=== PATIENT | female | born 1950 | race Caucasian/White ===

== ENCOUNTER → 2018-05-30 10:59 | Outpatient (CLI) | payer MEDICARE, OTHER, SELFPAY ==
--- NOTE | 2018-05-30 | DI.MG.S_ITS ---
BILATERAL DIGITAL SCREENING MAMMOGRAM 3D/2D WITH CAD: 05/30/2018 CLINICAL: Routine screening. Comparison is made to exams dated: 04/27/2017 mammogram, 02/25/2016 mammogram, and 01/29/2015 mammogram - [facility]. There are scattered fibroglandular elements in both breasts. Current study was also evaluated with a Computer Aided Detection (CAD) system. No significant masses, calcifications, or other findings are seen in either breast. There has been no significant interval change. IMPRESSION: NEGATIVE There is no mammographic evidence of malignancy. A 1 year screening mammogram is recommended. This exam was interpreted at Station ID: [id number]. NOTE: For mammograms, a report in lay terms will be sent to the patient. Approximately 15% of breast malignancies will not be visualized mammographically. In the management of a palpable breast mass, a negative mammogram must not discourage biopsy of a clinically suspicious lesion. Electronically Signed By: Argelia galeano/ross:05/30/2018 12:07:35 letter sent: Normal Exam ACR BI-RADS Category 1: Negative 3341F
== END ==
PROVIDERS: PCP Family Medicine; Visit Provider Family Medicine
DX: Z12.31 Encounter for screening mammogram for malignant neoplasm of breast (principal)
CPT/HCPCS: 77063; 77067

== ENCOUNTER → 2019-11-27 10:48 | Outpatient (CLI) | payer MEDICARE, OTHER, SELFPAY ==
--- NOTE | 2019-11-27 | DI.MG.S_ITS ---
BILATERAL DIGITAL SCREENING MAMMOGRAM 3D/2D WITH CAD: 11/27/2019 CLINICAL: Routine screening. Comparison is made to exams dated: 05/30/2018 mammogram, 04/27/2017 mammogram, and 02/25/2016 mammogram - [facility]. There are scattered fibroglandular elements in both breasts. Current study was also evaluated with a Computer Aided Detection (CAD) system. No significant masses, calcifications, or other findings are seen in either breast. There has been no significant interval change. IMPRESSION: NEGATIVE There is no mammographic evidence of malignancy. A 1 year screening mammogram is recommended. This exam was interpreted at Station ID: [id number]. NOTE: For mammograms, a report in lay terms will be sent to the patient. Approximately 15% of breast malignancies will not be visualized mammographically. In the management of a palpable breast mass, a negative mammogram must not discourage biopsy of a clinically suspicious lesion. Electronically Signed By: Buck ibrahim/ross:11/27/2019 11:12:37 letter sent: Normal Exam ACR BI-RADS Category 1: Negative 3341F
== END ==
PROVIDERS: PCP Family Medicine; Referring Provider Family Medicine; Visit Provider Family Medicine
DX: Z12.31 Encounter for screening mammogram for malignant neoplasm of breast (principal)
CPT/HCPCS: 77063; 77067

== ENCOUNTER → 2021-05-11 10:51 | Outpatient (CLI) | payer MEDICARE, OTHER, SELFPAY ==
--- NOTE | 2021-05-11 | DI.MG.S_ITS ---
BILATERAL DIGITAL SCREENING MAMMOGRAM 3D/2D WITH CAD: 05/11/2021 CLINICAL: Routine screening. Comparison is made to exams dated: 11/27/2019 mammogram, 05/30/2018 mammogram, and 04/27/2017 mammogram - [facility]. There are scattered fibroglandular elements in both breasts. Current study was also evaluated with a Computer Aided Detection (CAD) system. No significant masses, calcifications, or other findings are seen in either breast. There has been no significant interval change. IMPRESSION: NEGATIVE There is no mammographic evidence of malignancy. A 1 year screening mammogram is recommended. This exam was interpreted at Station ID: [id number]. NOTE: For mammograms, a report in lay terms will be sent to the patient. Approximately 15% of breast malignancies will not be visualized mammographically. In the management of a palpable breast mass, a negative mammogram must not discourage biopsy of a clinically suspicious lesion. Electronically Signed By: Saleem alexandre/ross:05/11/2021 12:51:15 letter sent: Normal Exam ACR BI-RADS Category 1: Negative 3341F
--- NOTE | 2021-05-11 | DI.RAD.S_ITS ---
PROCEDURE: XR DEXA AXIAL SKELETON INDICATIONS: Age-related osteoporosis without current pathological fractu COMPARISON: None. FINDINGS: This blank DEXA report has been sent in error by the PACS system. The correct and complete report will be forthcoming in 1-2 days. Thank you for your patience and understanding. Dictated by: Lety Krishnamurthy MD, PhD on 05/11/2021 at 12:09 Approved by: Lety Krishnamurthy MD, PhD on 05/11/2021 at 12:09
== END ==
PROVIDERS: PCP Family Medicine; Referring Provider Family Medicine; Visit Provider Family Medicine
DX: Z12.31 Encounter for screening mammogram for malignant neoplasm of breast (principal); M85.852 Other specified disorders of bone density and structure, left thigh; Z78.0 Asymptomatic menopausal state
CPT/HCPCS: 77063; 77067; 77080

== ENCOUNTER 2021-11-20 10:44 | Emergency (ER) | payer MEDICARE, OTHER, SELFPAY ==
[2021-11-20] VITALS (15 sets, daily range): BP systolic 179–213; BP diastolic 72–93; PULSE 63–80; RESP 18; TEMP 36.7; O2SAT 97–100; BMI 29.1
[2021-11-20 12:53] LABS: Alanine Aminotransferase 44 IU/L (<35); Albumin 4.6 g/dL (3.5-5.0); Albumin Globulin Ratio 1.4 (1.0-2.8); Alkaline Phosphatase 63 U/L (38-126); Aspartate Aminotransferase 48 IU/L (14-36); BUN Creatinine Ratio 27.9 (6-22); Bilirubin Total 0.5 mg/dL (0.2-1.3); Blood Urea Nitrogen 24 mg/dL (7-17); Calcium 9.7 mg/dL (8.4-10.2); Carbon Dioxide 28 mmol/L (22-32); Chloride 100 mmol/L (98-107); Estimated Glomerular Filt Rate > 60 mL/min (>60); Globulin 3.3 g/dL (1.7-4.1); Glucose 114 mg/dL (80-110); HEMOLYSIS < 15 (0-50); Lipase 637 U/L (23-300); Potassium 3.5 mmol/L (3.4-5.1); Sodium 137 mmol/L (137-145); Total Protein 7.9 g/dL (6.3-8.2)
[2021-11-20 12:57] LABS: Amorphous Sediment Urine 1+; Bacteria Urine Few (2-10); RBC Urine 1-5/HPF (0-5/HPF); Squamous Epithelial Cell Urine 1-5 /HPF (0-5/HPF); WBC Urine 1-5/HPF (0-5/HPF)
[2021-11-20 12:58] LABS: Culture Indicated Urine Specimen Cultured; Mucus Urine 1+ (Negative)
[2021-11-20 12:59] LABS: Add Manual Diff / Slide Review NO; Basophils Absolute Auto 100 /uL (0-100); Basophils Percent Auto 0.6 % (0-2); Eosinophils Absolute Auto 200 /uL (0-450); Eosinophils Percent Auto 2.2 % (2-4); Hematocrit 41.4 % (36-46); Hemoglobin 14.2 g/dL (12.0-16.0); Lymphocytes Absolute Auto 3600 /uL (1100-4500); Lymphocytes Percent Auto 34.5 % (25-40); Mean Corpuscular HGB Conc 34.4 % (30-36); Mean Corpuscular Hemoglobin 32.3 PG (26-34); Mean Corpuscular Volume 93.7 fL (80-100); Monocytes Absolute Auto 1000 /uL (0-900); Monocytes Percent Auto 9.3 % (3-14); Neutrophils Absolute Auto 5600 /uL (1500-7000); Neutrophils Percent Auto 53.4 % (50-75); Platelet Count 293 X10^3/uL (150-400); Red Blood Cell Count 4.41 X10^6/uL (4.0-5.2); Red Cell Distribution Width 14.1 % (11.6-14.8); White Blood Cell Count 10.4 X10^3/uL (4.5-11.0)
--- NOTE | 2021-11-20 13:12 | ED.ABDPAIN ---
HPI - Abdominal Pain General Chief Complaint: Abdominal Pain Stated Complaint: rectal bleeding abd cramps diareha Time Seen by Provider: 11/20/21 13:07 Source: patient Mode of arrival: Ambulatory Limitations: no limitations History of Present Illness HPI narrative: This is a 71-year-old female with history significant for hypertension, dyslipidemia, gout, colon cancer with prior resection without chemo or radiation and polyps on last colonoscopy 2 years ago who comes emergency department with complaint of abdominal pain that began 5 days ago, patient states she had nausea at that episode she had diarrhea throughout the night, this has. She has had not had any additional bowel movements but has continued to have some mucousy red discharge from the rectum. She states no fevers or chills. She describes pain in the left lower quadrant which is intermittent but actually improved today compared to yesterday. No dysuria, urgency frequency or hematuria that she is appreciated. No vaginal bleeding or discharge. Patient notes her prior colon resection with over 5 years ago, she had surveillance with her oncologist team and was cleared at 5 year vahid and continues to have colonoscopies regularly. She denies other surgeries. No known drug allergies. Tobacco, glass of alcohol daily, no illicit. She lives on [facility] [address]. Review of Systems Review of Systems ROS Unobtainable: All systems reviewed & are unremarkable except as noted in HPI and below Patient History Social History Smoking Status: Never smoker Smoking Status: Never smoker alcohol intake frequency: a few times a week Alcohol type: wine Substance Use Type: does not use Exam Narrative Exam Narrative: GENERAL: Alert and oriented x three, female in mild distress HEENT: Head normocephalic, atraumatic, EOMI, pupils reactive, face symmetric, moist mucous membranes NECK: Supple, full range of motion CARDIOVASCULAR: Regular rate and rhythm without murmurs, rubs or gallops. RESPIRATORY: Breath sounds equal bilaterally, no wheezes rales or rhonchi. ABDOMEN: Soft, nontender. Normoactive bowel sounds all 4 quadrants. No guarding or rebound, rigidity, no mass, no palpable hernia or distention. On rectal exam patient has scant bright red blood which is positive for stool occult, no large masses appreciated, there is a small hemorrhoid, : No CVA tenderness EXTREMITIES: Normal range of motion, no clubbing or edema. Neurovascularly intact NEUROLOGICAL: Cranial nerves II through XII grossly intact. Moving all extremities SKIN: Warm, dry, no petechiae, no rashes or lesions. Initial Vital Signs Initial Vital Signs: Vital Signs Temperature 98.1 F 11/20/21 11:33 Pulse Rate 67 11/20/21 11:33 Respiratory Rate 18 11/20/21 11:33 Blood Pressure 187/79 H 11/20/21 11:33 Pulse Oximetry 99 11/20/21 11:33 Oxygen Delivery Method 11/20/21 11:33 Course Orders Ordered: ED Orders 11/20/21 11:50 Urine Culture Stat Urine Microscopic Stat 11/20/21 12:10 Complete Blood Count AUTO DIFF Stat Comprehensive Metabolic Panel Stat Lipase Stat 11/20/21 13:28 CT abdomen pelvis w con Stat Vital Signs Vital signs: Vital Signs - 8 hr 11/20/21 11:33 11/20/21 12:15 11/20/21 11:58 Temperature 98.1 F 98.1 F Pulse Rate 67 70 80 Respiratory Rate 18 18 Blood Pressure 187/79 H 189/78 H Pulse Oximetry 99 99 97 Oxygen Delivery Method Room Air Room Air 11/20/21 12:00 11/20/21 12:00 11/20/21 12:30 Temperature Pulse Rate 70 67 Respiratory Rate Blood Pressure 189/78 H Pulse Oximetry 99 99 Oxygen Delivery Method 11/20/21 12:31 11/20/21 12:31 11/20/21 13:00 Temperature Pulse Rate 71 63 Respiratory Rate Blood Pressure 179/80 H Pulse Oximetry 99 99 Oxygen Delivery Method 11/20/21 13:01 11/20/21 13:01 11/20/21 13:30 Temperature Pulse Rate 70 74 Respiratory Rate Blood Pressure 181/72 H Pulse Oximetry 100 99 Oxygen Delivery Method 11/20/21 13:31 11/20/21 13:31 11/20/21 14:00 Temperature Pulse Rate 73 63 Respiratory Rate Blood Pressure 191/80 H Pulse Oximetry 98 100 Oxygen Delivery Method 11/20/21 14:14 11/20/21 14:14 11/20/21 14:30 Temperature Pulse Rate 72 68 Respiratory Rate Blood Pressure 190/80 H Pulse Oximetry 100 100 Oxygen Delivery Method 11/20/21 16:25 11/20/21 16:30 Temperature Pulse Rate 77 74 Respiratory Rate 18 18 Blood Pressure 213/93 H 213/93 H Pulse Oximetry 99 99 Oxygen Delivery Method Room Air Room Air MDM - Abdominal Pain Lab Data Result diagrams: 11/20/21 12:10 11/20/21 12:10 Labs: Lab Results 11/20/21 11/20/21 11/20/21 Range/Units 11:50 12:10 12:10 WBC 10.4 (4.5-11.0) X10^3/uL RBC 4.41 (4.0-5.2) X10^6/uL Hgb 14.2 (12.0-16.0) g/dL Hct 41.4 (36-46) % MCV 93.7 (80-100) fL MCH 32.3 (26-34) PG MCHC 34.4 (30-36) % RDW 14.1 (11.6-14.8) % Plt Count 293 (150-400) X10^3/uL Neut % (Auto) 53.4 (50-75) % Lymph % (Auto) 34.5 (25-40) % Martin % (Auto) 9.3 (3-14) % Eos % (Auto) 2.2 (2-4) % Baso % (Auto) 0.6 (0-2) % Neut # (Auto) 5600 (3932-8975) /uL Lymph # (Auto) 3600 (0902-9824) /uL Martin # (Auto) 1000 H (0-900) /uL Eos # (Auto) 200 (0-450) /uL Baso # (Auto) 100 (0-100) /uL Sodium 137 (137-145) mmol/L Potassium 3.5 (3.4-5.1) mmol/L Chloride 100 (98-107) mmol/L Carbon Dioxide 28 (22-32) mmol/L BUN 24 H (7-17) mg/dL Creatinine 0.86 (0.52-1.04) mg/dL Estimated GFR > 60 (>60) mL/min BUN/Creatinine Ratio 27.9 H (6-22) Glucose 114 H (80-110) mg/dL Calcium 9.7 (8.4-10.2) mg/dL Total Bilirubin 0.5 (0.2-1.3) mg/dL AST 48 H (14-36) IU/L ALT 44 H (<35) IU/L Alkaline Phosphatase 63 (38-126) U/L Total Protein 7.9 (6.3-8.2) g/dL Albumin 4.6 (3.5-5.0) g/dL Globulin 3.3 (1.7-4.1) g/dL Albumin/Globulin Ratio 1.4 (1.0-2.8) Lipase 637 H (23-300) U/L Urine RBC 1-5/hpf (0-5/HPF) Urine WBC 1-5/hpf (0-5/HPF) Ur Squamous Epith Cells 1-5 /hpf (0-5/HPF) Amorphous Sediment 1+ Urine Bacteria Few (2-10) H (None) Urine Mucus 1+ H (Negative) Ur Culture Indicated? Specimen cultured Point of care testing: Urine Dip Bedside Urine Glucose Negative Bedside Urine Bilirubin - Negative Bedside Urine Ketone - Negative Urine Specific [place] 1.020 Bedside Urine Occult Blood + Bedside Urine pH 6.0 Bedside Urine Protein - Negative Bedside Urine Urobilinogen - Negative Bedside Urine Nitrite - Negative Bedside Urine Leukocytes - Negative Esterase Imaging Data CT scan - abdomen/pelvis: Radiologist's Impression: [place] [id number] Scan ReportSigned Patient: Pérez Mercado RMR#: [id number]: [id number]:[id number]/Sex: 71 / FDate of Service: 11/20/21Loc: EDAccession Number: [id number]? ? Procedure: CT abdomen pelvis w con Ordering Provider: Anita Elias D.O. PROCEDURE:? CT ABDOMEN PELVIS W CON ? INDICATIONS:? LLQ pain, hx colon CA w/ resection. polyps in past. ? TECHNIQUE:? After the administration of intravenous contrast, axial sections acquired from the lung bases to the pubic symphysis.? Coronal and sagittal reformats were performed.? For radiation dose reduction, the following was used:? automated exposure control, adjustment of mA and/or kV according to patient size.? ? COMPARISON:? None. ? FINDINGS:? Image quality:? Excellent.? ? Lung bases:? Unremarkable. Heart:? No significant findings. ? ABDOMEN: Liver:? The liver is diffusely hypoattenuating, consistent with fatty infiltration.? A low-density lesion in the right hepatic dome is too small to characterize but likely represents a cyst.? Correlation with prior exams is recommended if available.? Gallbladder:? Probable focal adenomyomatosis at the gallbladder fundus.? Small calcified gallstones are seen in the dependent portion of gallbladder.? No signs of acute cholecystitis. Biliary ducts:? Unremarkable.? ? Pancreas:? Unremarkable.? ? Spleen:? Unremarkable.? ? Adrenal Glands:? Unremarkable.? ? Kidneys and Ureters:? Multiple small cysts are seen in the kidneys.? No hydronephrosis. ? Stomach and Bowel:? Colocolic anastomosis is seen in the left lower quadrant.? Normal appendix.? No signs of bowel obstruction.? The descending colon proximal to the anastomosis demonstrates mild bowel wall thickening versus underdistention and possible trace pericolonic fat stranding. Peritoneum:? No abnormal intraperitoneal fluid.? No free air.? ? Ventral Wall:? ?Small fat containing supraumbilical hernia. Abdominal Nodes:? No retroperitoneal or mesenteric adenopathy by size criteria.? Vessels:? Aorta and inferior vena cava are normal in size.? Moderate aortic atherosclerotic calcifications. ? PELVIS: Pelvic Organs:? Uterus is enlarged by calcified degenerated fibroids. Bladder:? Unremarkable.? ? Pelvic Nodes: No enlarged lymph nodes.? Miscellaneous: No hernias are seen.? Bones:? Degenerative changes are seen in the included spine. ? ? IMPRESSION:? 1. Long segment of bowel wall thickening versus underdistention in the descending colon proximal to the anastomosis with possible trace pericolic fat stranding or scarring.? Findings could represent a mild colitis.? No signs of bowel obstruction. 2. Cholelithiasis. 3. Diffuse hepatic steatosis. 4. Fibroid uterus. ? ? Dictated by: Saleem May M.D. on 11/20/2021 at 15:08? ?? Approved by: Saleem May M.D. on 11/20/2021 at 15:13?? MDM Narrative Medical decision making narrative: This is a 71-year-old female with history significant for prior colon cancer with partial colon resection that is greater than 5 years out from her treatment. She has had colon polyps on colonoscopy 2 years ago and had left lower quadrant abdominal pain that has been improving but continues to have some persistent mucousy, bleeding but no active bowel movements. She denies any other urinary symptoms. No vaginal bleeding. Patient today has mild bump in her AST, ALT and lipase. She is not tender in this region. She is nontender on left lower quadrant but states her pain has been persistently on the side but intermittent. With her past medical history CT abdomen pelvis was obtained Discharge Plan Departure Patient Disposition: Home Clinical Impression: Colitis, Gallstones, Elevated lipase Instructions: DI for Colitis Activity Restrictions/Additional Instructions: Follow up with your physician for recheck. You can take tylenol up to 1000mg for pain every 6 hours. Your imaging today does show some thickening of the colon it is consistent with the location of your pain. It is very mild and if your pain is improving I would not start any antibiotics. I would discuss this with your gastroenterology team to have repeat colonoscopy for further evaluation and possible biopsy. Included is a disk with your imaging for today. You do have elevation in your lipase today at 637 with a slight elevation of AST 48/ALT 44 your found have gallstones but no changes to the pancreas on your imaging. I would follow-up with your physician for recheck but if you are not having any upper epigastric pain or right upper quadrant pain did not need any acute treatment at this time. Your imaging all does show some hepatic steatosis which may be related to these findings. Please return for fevers, new or worsening pain, persistent vomiting, black or bloody stools that are persisting or other new or concerning symptoms. Referrals: James Richard MD [Non-Staff] - Otilio Whitfield MD [Primary Care Provider] - Visit Report Forms: Patient Portal/API
--- NOTE | 2021-11-20 13:28 | DI.CT.S_ITS ---
PROCEDURE: CT ABDOMEN PELVIS W CON INDICATIONS: LLQ pain, hx colon CA w/ resection. polyps in past. TECHNIQUE: After the administration of intravenous contrast, axial sections acquired from the lung bases to the pubic symphysis. Coronal and sagittal reformats were performed. For radiation dose reduction, the following was used: automated exposure control, adjustment of mA and/or kV according to patient size. COMPARISON: None. FINDINGS: Image quality: Excellent. Lung bases: Unremarkable. Heart: No significant findings. ABDOMEN: Liver: The liver is diffusely hypoattenuating, consistent with fatty infiltration. A low-density lesion in the right hepatic dome is too small to characterize but likely represents a cyst. Correlation with prior exams is recommended if available. Gallbladder: Probable focal adenomyomatosis at the gallbladder fundus. Small calcified gallstones are seen in the dependent portion of gallbladder. No signs of acute cholecystitis. Biliary ducts: Unremarkable. Pancreas: Unremarkable. Spleen: Unremarkable. Adrenal Glands: Unremarkable. Kidneys and Ureters: Multiple small cysts are seen in the kidneys. No hydronephrosis. Stomach and Bowel: Colocolic anastomosis is seen in the left lower quadrant. Normal appendix. No signs of bowel obstruction. The descending colon proximal to the anastomosis demonstrates mild bowel wall thickening versus underdistention and possible trace pericolonic fat stranding. Peritoneum: No abnormal intraperitoneal fluid. No free air. Ventral Wall: Small fat containing supraumbilical hernia. Abdominal Nodes: No retroperitoneal or mesenteric adenopathy by size criteria. Vessels: Aorta and inferior vena cava are normal in size. Moderate aortic atherosclerotic calcifications. PELVIS: Pelvic Organs: Uterus is enlarged by calcified degenerated fibroids. Bladder: Unremarkable. Pelvic Nodes: No enlarged lymph nodes. Miscellaneous: No hernias are seen. Bones: Degenerative changes are seen in the included spine. IMPRESSION: 1. Long segment of bowel wall thickening versus underdistention in the descending colon proximal to the anastomosis with possible trace pericolic fat stranding or scarring. Findings could represent a mild colitis. No signs of bowel obstruction. 2. Cholelithiasis. 3. Diffuse hepatic steatosis. 4. Fibroid uterus. Dictated by: Saleem May M.D. on 11/20/2021 at 15:08 Approved by: Saleem May M.D. on 11/20/2021 at 15:13
== END 2021-11-20 16:31 | disposition home or self-care (01) ==
PROVIDERS: Emergency Provider Emergency Medicine; PCP Family Medicine
DX: K52.9 Noninfective gastroenteritis and colitis, unspecified (principal); K80.20 Calculus of gallbladder without cholecystitis without obstruction; R74.8 Abnormal levels of other serum enzymes
CPT/HCPCS: 36415; 74177; 80053; 81003; 81015; 83690; 85025; 87086; 99283; Q9967

== ENCOUNTER → 2022-11-18 14:23 | Outpatient (CLI) | payer MEDICARE, OTHER, SELFPAY ==
--- NOTE | 2022-11-18 | DI.MG.S_ITS ---
BILATERAL DIGITAL SCREENING MAMMOGRAM 3D/2D WITH CAD: 11/18/2022 CLINICAL: Routine screening. Comparison is made to exams dated: 05/11/2021 mammogram, 11/27/2019 mammogram, and 05/30/2018 mammogram - [facility]. There are scattered areas of fibroglandular density in both breasts (category b / 25%-50% glandular tissue). Current study was also evaluated with a Computer Aided Detection (CAD) system. No significant masses, calcifications, or other findings are seen in either breast. There has been no significant interval change. IMPRESSION: NEGATIVE There is no mammographic evidence of malignancy. A 1 year screening mammogram is recommended. Based on the Tyrer Cuzick model (a risk assessment model) the patient's lifetime risk is 3.9% and her 10 year risk is 3.5%. According to the ACR, ACS, and NCCN guidelines, an annual breast MRI exam along with mammogram is recommended if the patient's lifetime risk is 20% or greater. This exam was interpreted at Station ID: [id number]. NOTE: For mammograms, a report in lay terms will be sent to the patient. Approximately 15% of breast malignancies will not be visualized mammographically. In the management of a palpable breast mass, a negative mammogram must not discourage biopsy of a clinically suspicious lesion. Electronically Signed By: Evan escalante/ross:11/18/2022 16:47:42 letter sent: Normal Exam ACR BI-RADS Category 1: Negative 3341F
== END ==
PROVIDERS: PCP Family Medicine; Referring Provider Family Medicine; Visit Provider Family Medicine
DX: Z12.31 Encounter for screening mammogram for malignant neoplasm of breast (principal)
CPT/HCPCS: 77063; 77067

== ENCOUNTER → 2024-02-26 12:35 | Outpatient (CLI) | payer MEDICARE, OTHER, SELFPAY ==
--- NOTE | 2024-02-26 12:36 | DI.MG.S_ITS ---
BILATERAL DIGITAL SCREENING MAMMOGRAM 3D/2D WITH CAD: 02/26/2024 CLINICAL: Routine screening. Comparison is made to exams dated: 11/18/2022 mammogram, 05/11/2021 mammogram, 11/27/2019 mammogram, 05/30/2018 mammogram, and 04/27/2017 mammogram - [facility]. There are scattered areas of fibroglandular density (category b / 25%-50% glandular tissue). Current study was also evaluated with a Computer Aided Detection (CAD) system. There are benign post operative findings in the left breast. No significant masses, calcifications, or other findings are seen in either breast. There has been no significant interval change. IMPRESSION: BENIGN There is no mammographic evidence of malignancy. A 1 year screening mammogram is recommended. Based on the Tyrer Cuzick model (a risk assessment model) the patient's lifetime risk is 3.6% and her 10 year risk is 3.6%. According to the ACR, ACS, and NCCN guidelines, an annual breast MRI exam along with mammogram is recommended if the patient's lifetime risk is 20% or greater. This exam was interpreted at Station ID: [id number]. NOTE: For mammograms, a report in lay terms will be sent to the patient. Approximately 15% of breast malignancies will not be visualized mammographically. In the management of a palpable breast mass, a negative mammogram must not discourage biopsy of a clinically suspicious lesion. Electronically Signed By: Teena Nelson M.D., Ph.D. jose/ross:02/27/2024 12:49:09 letter sent: Normal Exam ACR BI-RADS Category 2: Benign 3342F
== END ==
PROVIDERS: PCP Family Medicine; Referring Provider Family Medicine; Visit Provider Family Medicine
DX: Z12.31 Encounter for screening mammogram for malignant neoplasm of breast (principal)
CPT/HCPCS: 77063; 77067

== ENCOUNTER → 2025-03-26 10:50 | Outpatient (CLI) | payer MEDICARE, OTHER, SELFPAY ==
--- NOTE | 2025-03-26 11:00 | DI.MG.S_ITS ---
MM screening mammo BI: 03/26/2025. BI-RADS: 2 CLINICAL: 74-year old female for bilateral screening mammogram. Tyrer-Cuzick lifetime risk of 3.2%. No personal or first-degree family history of breast cancer. The patient had a prior left breast biopsy. PRIOR EXAMS 02/26/2024, 11/18/2022, 05/11/2021, 11/27/2019, MAMMOGRAPHY TECHNIQUE: 2D and 3D (tomosynthesis) digital mammographic views obtained, with additional images as needed for full coverage. Current study was also evaluated with a Computer Aided Detection (CAD) system. DENSITY B. There are scattered areas of fibroglandular density. MAMMOGRAPHY FINDINGS Right: No suspicious mass, asymmetry, microcalcification, or other abnormality seen. Left: Benign-appearing post-surgical changes noted on the left. There are no suspicious masses, calcifications, or other findings in the breast. IMPRESSION: Right * No evidence of malignancy. Left * No evidence of malignancy with benign findings. RECOMMENDATIONS Bilateral * Annual screening mammography. OVERALL ASSESSMENT CATEGORY BI-RADS-2: Benign. The [employer] recommends annual screening mammography beginning at age 40 for women with average risk of breast cancer. ELECTRONICALLY SIGNED: Teena Nelson M.D. on 03/29/2025 at 01:31:14 PM PT Interpreting Station ID: [id number]
== END ==
LOC: MAMMO 10:52
PROVIDERS: PCP Family Medicine; Referring Provider Family Medicine; Visit Provider Family Medicine
DX: Z12.31 Encounter for screening mammogram for malignant neoplasm of breast (principal)
CPT/HCPCS: 77063; 77067

== ENCOUNTER → 2025-05-05 10:30 | Outpatient (CLI) | payer MEDICARE, OTHER, SELFPAY ==
--- NOTE | 2025-05-05 10:32 | DI.ECHO.S_ITS ---
[facility] : : [id number] : : [place] : : [id number] : : Phone: [phone] Echocardiogram Report + + :Name: BERNARDO BUSTOS Study Date: 05/05/2025 Height: 63 in : :[facility] ReadingLocation: Weight: 170 lb : : Gender: Female BSA: 1.8 m2 : :: 1950 Age: 74 yrs BP: 160/82 mmHg: :Reason For Study: Dyspnea : :Ordering Physician: KYLIE, : :LIZ Crane Performed By: Karyn Gallardo : :Referring: LIZ ESPINAL : + + Interpretation Summary Normal sinus rhythm; uncontrolled hypertension. Normal LV size, wall thickness, wall motion and LV systolic function. EF is 55-60%. Normal chamber sizes. No valve abnormalities. No prior study available for comparison. Procedure: A two-dimensional transthoracic echocardiogram with color flow and Doppler was performed. The study quality was technically adequate. There is no prior echocardiogram noted for this patient. The heart rate ranged between 65-67 bpm during the study. Left Ventricle: The left ventricle is normal in size and wall thickness. The ejection fraction is estimated to be 55-60%. Normal diastolic function. Right Ventricle: The right ventricle grossly appears normal in size with probable normal systolic function. Atria: The left atrial size is normal. Right atrial size is normal. The interatrial septum grossly appears intact with no obvious evidence for an atrial septal defect. Mitral Valve: The mitral valve leaflets appear borderline thickened. There is trace mitral regurgitation. Aortic Valve: The aortic valve is trileaflet. The aortic valve opens well. The aortic valve is slightly calcified. There is no aortic valve stenosis. No aortic regurgitation is present. Tricuspid Valve: The tricuspid valve leaflets are thin and pliable. There is a trace or physiologic amount of tricuspid regurgitation. The right ventricular systolic pressure is estimated to be at least 15 mmHg based on an estimated right atrial pressure of 3 mm Hg. Pulmonic Valve: The pulmonic valve is normal in structure and function. There is a trace or physiologic amount of pulmonic regurgitation. Great Vessels: The aortic root is normal size. The ascending aorta is normal in size. The aortic arch is normal in size. The IVC is of normal diameter and collapses greater than 50% with a sniff. This suggests a low right atrial pressure of 3 mm Hg. Pericardium/ Pleura There is no pericardial effusion. There is no pleural effusion. MMode/2D Measurements & Calculations LVIDd: 4.5 cm LVOT diam: 2.1 cm LVIDs: 2.4 cm Ao root diam: 3.0 cm FS: 47.8 % asc Aorta Diam: 3.2 cm EPSS: 0.54 cm Ao Arch Diam (Prox Trans): 2.2 cm IVSd: 0.75 cm LVPWd: 0.66 cm LV heath. diameter/BSA (cm/m^2): 2.5 LV sys. diameter/BSA (cm/m^2): 1.3 LA A2 area: 19.1 cm2 RA long axis: 4.2 cm LA A4 area: 17.6 cm2 RA area: 9.0 cm2 LA length (vol): 5.0 cm RA vol: 16.1 ml LA vol: 57.6 ml RA : 8.9 ml/m2 LA vol index: 31.9 ml/m2 IVC diam: 1.9 cm RVD1 (basal): 2.4 cm TAPSE: 2.0 cm Doppler Measurements & Calculations Ao V2 max: 153.4 cm/sec LVOT Max Lizandro: 74.4 cm/sec Ao V2 mean: 96.4 cm/sec LV V1 max P.2 mmHg Ao max P.4 mmHg LV V1 VTI: 17.7 cm Ao mean P.5 mmHg FROILAN(I,D): 1.7 cm2 Ao V2 VTI: 34.5 cm FROILAN(V,D): 1.6 cm2 sev ratio: 0.51 FROILAN indexed to BSA (cm^2/m^2): 0.96 MV E max lizandro: 84.7 cm/sec TR max lizandro: 170.6 cm/sec MV A max lizandro: 95.0 cm/sec TR max P.7 mmHg MV E/A: 0.89 PA V2 max: 87.0 cm/sec Med Peak E' Lizandro: 7.6 cm/sec PA V2 mean: 53.9 cm/sec E/E' med: 11.2 PA mean P.4 mmHg Lat Peak E' Lizandro: 8.3 cm/sec PA pr(Accel): 25.9 mmHg E/E' lat: 10.2 E/e' average: 10.7 MV dec time: 0.21 sec SV(LVOT): 59.6 ml Electronically signed by: Mere Valdez M.D. on Reading Physician:05/06/2025 04:50 AM
== END ==
LOC: ECHO 10:31
PROVIDERS: PCP Family Medicine; Referring Provider Family Medicine; Visit Provider Family Medicine
DX: R06.09 Other forms of dyspnea (principal)
CPT/HCPCS: 93306